=== PATIENT | male | born 1995 | race African-American/Black ===

== ENCOUNTER 2019-08-03 01:01 | Emergency (ER) | payer OTHER, MEDICAID ==
[~2019-08-03] VITALS: Ht 188 cm; Wt 176.0 kg
--- NOTE | ~2019-08-03 | EKG ---
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
--- NOTE | ~2019-08-03 | EKG ---
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
[2019-08-03 02:05] LABS: HEMATOCRIT 40.8 % (42.0-52.0); WBC 4.4 thou/uL (4.0-11.0)
[2019-08-03 02:08] LABS: HEMOGLOBIN 13.5 gm/dL (14.0-18.0); MCH 25.8 pg (26.0-34.0); MCV 78.4 fL (80.0-100.0); MPV 9.3 fl. (7.2-11.1); NUCLEATED RBCS 0 /100WBC; PLATELET COUNT* 176 thou/uL (150-400); RBC 5.21 mil/uL (4.50-6.00)
[2019-08-03 02:14] LABS: PROTIME 10.7 Seconds (9.20-11.50)
[2019-08-03 02:17] LABS: CALCIUM 8.3 mg/dL (8.5-10.1)
[2019-08-03 02:25] LABS: ALBUMIN 3.9 g/dL (3.4-5.0); TOTAL BILIRUBIN 0.2 mg/dL (<0.1-1.0); TOTAL PROTEIN 8.4 g/dL (6.4-8.2)
[2019-08-03] MEDS ORDERED: CARAFATE 1 GM TA1 GM PO (04:42)
[2019-08-03 04:53] LABS: ABSOLUTE EOSINOPHILS 0.2 thou/uL (0.0-0.7); ABSOLUTE LYMPHOCYTES 2.1 thou/uL (0.8-5.3); ABSOLUTE MONOCYTES 0.4 thou/uL (0.0-1.2); ABSOLUTE NEUTROPHILS 1.8 thou/uL (1.6-8.1); ANISOCYTOSIS Occasional; PLATELET ESTIMATE ADEQUATE; TOXIC GRANULATION 1+
[2019-08-03 04:54] VITALS: BP 109/55
== END 2019-08-03 04:56 | disposition home or self-care (01) ==
LOC: M.ERS 01:01
PROVIDERS: Emergency Medicine
DX: R74.8 Abnormal levels of other serum enzymes (principal); F17.200 Nicotine dependence, unspecified, uncomplicated; Z98.890 Other specified postprocedural states; Z88.8 Allergy status to other drugs, medicaments and biological substances